=== PATIENT | female | born 1975 | race Hispanic/Latino ===

== ENCOUNTER 2018-11-18 12:20 | Emergency (ER) | payer SELFPAY ==
[~2018-11-18] VITALS: Ht 154.9 cm; Wt 50.0 kg
[2018-11-18] MEDS ORDERED: KETOROLAC 30 MG/ML VIAL (J1885) IV ONE (12:45)
[2018-11-18] MEDS ORDERED: ONDANSETRON 4MG/2ML VIAL (J2405) IV ONE (12:45)
[2018-11-18] MEDS ORDERED: NS 1,000 ML IV ONE (12:45)
[2018-11-18] MEDS ORDERED: CYCLOBENZAPRINE 10 MG TAB PO ONE (12:45)
--- NOTE | 2018-11-18 13:14 | REP ---
Clinical: Left flank pain. Technique: Real time dobson scale ultrasound examination using curved array transducer. Findings: Bilateral kidneys are normal in contour, size, echogenicity, and reniform shape without hydronephrosis, nephrolithiasis, cystic or renal mass lesion. No perinephric fluid collections are identified. Right kidney measures 10.2 x 4.2 x 4.0 cm. Left kidney measures 11.4 x 4.6 x 4.5 cm. Bladder is grossly unremarkable. Impression: Normal renal ultrasound. Electronically Signed by Jai Lerma MD 11/18/2018 01:06 P
[2018-11-18 13:43] LABS: BASO % 0.5 % (0.0-1.0); EOS # 0.2 10^3/uL (0.0-0.50); EOS % 2.2 % (0.0-3.0); HEMATOCRIT 41.1 % (36.0-47.0); LYMPH % 11.8 % (24.0-44.0); MEAN CORPUSCULAR HEMOGLOBIN 32.1 pg (27.0-33.0); MEAN CORPUSCULAR HGB CONC 34.1 g/dl (32.0-36.5); MEAN CORPUSCULAR VOLUME 94.3 fl (80.0-96.0); MONO # 0.5 10^3/uL (0.0-0.8); MONO % 5.8 % (0.0-5.0); NEUTROPHILS % 79.4 % (36.0-66.0); PLATELET COUNT, AUTOMATED 276 10^3/uL (150-450); RED BLOOD COUNT 4.36 10^6/uL (4.00-5.40); WHITE BLOOD COUNT 8.8 10^3/uL (4.0-10.0)
--- NOTE | 2018-11-18 13:50 | REP ---
Clinical: abdominal pain. Technique: Upright view of the chest with supine and upright views of the abdomen and pelvis. Findings: Frontal upright view of the chest demonstrates no acute cardiopulmonary process or free air below the diaphragm to suspect pneumoperitoneum. Supine and upright views of the abdomen and pelvis demonstrate nonspecific bowel gas pattern without obstruction or perforation. No organomegaly. No abnormal calcifications. Skeletal structures normal for age. Impression: Nonspecific bowel gas pattern. Electronically Signed by Jai Lerma MD 11/18/2018 01:41 P
[2018-11-18 14:13] LABS: ALBUMIN 3.1 GM/DL (3.2-5.2); ALT/SGPT 32 U/L (12-78); BILIRUBIN,DIRECT < 0.1 MG/DL (0.0-0.2); BILIRUBIN,TOTAL 0.3 MG/DL (0.2-1.0); BLOOD UREA NITROGEN 17 MG/DL (7-18); CALCIUM LEVEL 8.2 MG/DL (8.5-10.1); CARBON DIOXIDE LEVEL 28 MEQ/L (21-32); CHLORIDE LEVEL 108 MEQ/L (98-107); CPK CREATINE PHOSPHOKINASE 47 U/L (26-192); CREATININE FOR GFR 0.89 MG/DL (0.55-1.30); GLOMERULAR FILTRATION RATE > 60.0 (>58); GLUCOSE, FASTING 70 MG/DL (70-100); LIPASE 231 U/L (73-393); MB/CK RELATIVE INDEX 2.77 (< OR =4); POTASSIUM SERUM 4.1 MEQ/L (3.5-5.1); SODIUM LEVEL 139 MEQ/L (136-145); TOTAL PROTEIN 6.7 GM/DL (6.4-8.2); TROPONIN I < 0.02 NG/ML (< 0.10)
[2018-11-18 14:55] VITALS: BP 118/68
--- NOTE | 2018-11-19 14:50 | ECGEPIP ---
Stationary ECG Study [facility] - ED Test Date: 2018-11-18 Pat Name: CHANDRIKA COUCH Department: Room: - Gender: F [employer] Attendant: megan : 1975 Requested By: Lauro Mejia Order Number: [id number] Reading MD: Aviva Isidro Measurements Intervals [place] Rate: 69 P: 20 ID: [id number] QRS: 56 QRSD: 77 T: 55 QT: 396 QTc: 426 Interpretive Statements SINUS RHYTHM VOLTAGE CRITERIA FOR LVH NO PRIOR FOR COMPARISON Electronically Signed On 11-19-2018 14:49:49 EST by Aviva Isidro
== END 2018-11-18 14:57 | disposition home or self-care (01) ==
LOC: M ED 12:20
DX: S39.012A Strain of muscle, fascia and tendon of lower back, initial encounter (principal); X58.XXXA Exposure to other specified factors, initial encounter; Y92.89 Other specified places as the place of occurrence of the external cause; R11.0 Nausea; I10 Essential (primary) hypertension; F17.200 Nicotine dependence, unspecified, uncomplicated
CPT/HCPCS: 74021; 76775; 80048; 80076; 82550; 82553; 83605; 83690; 84484; 85025; 93005; 93041; 96361; 96374; 96375; 99284; J1885; J2405